=== PATIENT | male | born 1970 | race Caucasian/White ===

== ENCOUNTER 2024-02-02 16:15 | Emergency (ER) | payer BC ==
[~2024-02-02] VITALS: Ht 190.5 cm; Wt 136.0 kg
[2024-02-02 17:00] VITALS: BP 156/97; PULSE 87; RESP 14; TEMP 98.9; O2SAT 97
== END 2024-02-02 17:48 ==
LOC: ER 16:16
DX: F10.129 Alcohol abuse with intoxication, unspecified (principal); V89.2XXA Person injured in unspecified motor-vehicle accident, traffic, initial encounter; Y93.89 Activity, other specified; Y92.89 Other specified places as the place of occurrence of the external cause; Y99.8 Other external cause status; Y90.9 Presence of alcohol in blood, level not specified
CPT/HCPCS: 99283